=== PATIENT | male | born 1985 ===

== ENCOUNTER 2025-02-19 12:35 | Emergency (ER) | payer MEDICAID, SELFPAY ==
--- NOTE | ~2025-02-19 | US_ITS ---
CLINICAL HISTORY: lt testicular pain and swelling w hard nodule post Scrotal ultrasound with vascular interrogation Comparison: None available Findings: The testes are normal in echotexture without lesions. Normal arterial/venous color Doppler and flow pattern. Right testis size, lower limit of normal: 4.6 x 1.9 x 2.5 cm, volume of 11.9mL. Left testis size, mildly atrophic: 4.0 x 1.4 x 2.6 cm, volume of 7.5mL. The epididymides are normal in size and echotexture. Normal color Doppler. No hydrocele. No varicocele. Within the scrotal wall inferior to the left testis there is hypoechoic/heterogeneous avascular collection measuring 1.9 x 1.1 x 1.1 cm. There is associated skin thickening with increased color Doppler. Impression: Left scrotal wall phlegmon versus abscess measuring 1.9 cm. This document has been electronically signed by: Lindsey Contreras MD on 02/19/2025 14:53:05
[2025-02-19 12:49] VITALS: BP 147/92; PULSE 96; RESP 18; TEMP 36.6; O2SAT 100; BMI 21.1
[2025-02-19] MEDS: HYDROcodone Bit/Acetam 5/325 TABLET 1 TAB PO (13:02)
[2025-02-19] MEDS: Lidocaine HCl 1 % MPF 5 ML VIAL SUBCUT (13:03)
--- NOTE | 2025-02-19 13:14 | ED.MALEGU ---
HPI - Male Genitourinary General Chief complaint: General Medical Stated complaint: Hernia on testicle Time Seen by Provider: 02/19/25 12:42 Source: patient and old records reviewed Mode of arrival: ambulatory Limitations: no limitations History of Present Illness ED Provider: CONCEPCIÓN ESPOSITO Narrative: 39 yo male with no sig PMH here with pain to L testicle and noting a bump. No new sexual partners, no abdominal pain no dysuria, no penile discharge, no fevers. He has never had this before. No hx of DM MD Complaint: testicle pain Onset (ago): day(s) (1) Duration: constant Location: left testicle Severity: moderate Quality: aching Relieving factors: none Exacerbating factors: palpation Associated symptoms: Reports denies other symptoms Related Data Previous Rx's ?Medication ?Instructions ?Recorded cephalexin 500 mg capsule 500 mg PO QID 7 days #28 caps 02/19/25 doxycycline hyclate 100 mg capsule 100 mg PO BID 7 days #14 caps 02/19/25 Allergies Allergy/AdvReac Type Severity Reaction Status Date / Time ampicillin Allergy Unknown Verified 02/19/25 12:56 Review of Systems Review of Systems: Constitutional : No Fever, No Chills ENT/Mouth : No sore throat, No Rhinorrhea Eyes: No Eye Pain, No Swelling, No Redness Cardiovascular : No Chest Pain, No SOB Respiratory : No Cough, No Sputum Gastrointestinal : No Nausea, No Vomiting, No Diarrhea, No abdominal Pain Genitourinary : No Dysuria, No Hematuria Musculoskeletal : No joint pain, No Myalgias, No Joint Swelling Skin : No Skin Lesions, positive skin rash Neuro : No Weakness, No Numbness, No Headache All other systems reviewed and are negative [facility] Past Medical History Attestation statement: The following information was validated with the patient. Source: old records reviewed Medical History (Updated 02/19/25 @ 15:06 by Nancy Steward DO) No pertinent past medical history Social History Social History (Updated 02/19/25 @ 13:20 by Nancy Steward DO) Patient Tobacco Use Status: Tobacco use Unknown Advance Directives: No Advance Directives Information Provided: No Physical Exam Vital Signs: Vital Signs: Last Vital Signs Temp 98 F 02/19/25 12:49 Pulse 96 02/19/25 12:49 Resp 18 02/19/25 12:49 BP 147/92 H 02/19/25 12:49 Pulse Ox 100 02/19/25 12:49 O2 Del Method Room Air 02/19/25 12:49 BMI result Body Mass Index 21.1 Appearance: Alert. Oriented X3. No acute distress. Eyes: Pupils equal, round and reactive to light. ENT: Pharynx normal. Neck: Normal inspection. Neck supple. CVS: Normal heart rate and rhythm. Pulses normal. Respiratory: No respiratory distress. Breath sounds normal. Abdomen: Soft and nontender. L testicle no hernia felt under the inf aspect of the scrotum is a firm tender area felt but no redness or crepitus Skin: Skin warm and dry. Normal skin color. . Extremities: No lower extremity edema. Neuro: Oriented X 3. No motor deficit. No sensory deficit. CN2-12 intact Medications Administered Discontinued Medications Generic Name Dose Route Start Last Admin Trade Name Freq PRN Reason Stop Dose Admin Hydrocodone Bitart/Acetaminophen 1 tab 02/19/25 12:54 02/19/25 13:02 Hydrocodone Bit/Acetam 5/325 Tablet PO 02/19/25 12:55 1 tab ONCE ONE Administration Lidocaine HCl 5 ml 02/19/25 12:54 02/19/25 13:03 Lidocaine Hcl 1 % Mpf 5 Ml Vial SUBCUT 02/19/25 12:55 5 ml ONCE ONE Administration Medical Decision Making Medical Decision Making [facility] Narrative: healthy 39 yo male with pain to L scrotum and concern for mass vs abscess on exam he has no systemic symptoms will obtain POC blood sugar, US to evaluate for mass/abscess. If abscess will I+D at the bedside. Differential Diagnosis Differential Diagnoses: The differential diagnosis associated with the presentation includes mass, abscess Admission/Observation Consideration of admission/observation: Escalation of care including admission/observation considered given the area and not fluctuance I will start on sitz baths and oral abx Lab Data [facility] Lab Attestation statement: I reviewed the patient's lab results. Independent Interpretation I performed an independent interpretation of an: Ultrasound (phlegmom vs abscess) Radiology Impression Discussion of test interpretation with radiology: I have reviewed the radiologist's reading. External Record Review External record reviewed: Outpatient record Prescription Management I considered prescription management with: Pain Medication and Antibiotic Discharge Plan Discharge Clinical Impression: Cellulitis of scrotum Patient Disposition: Home, Self-Care Instructions: Cellulitis (ED), Abscess (ED), Sitz Bath (DC) Additional Instructions: start of abscess on ultrasound wear supportive underwear return for worsening pain, fevers, unable to eat or drink, swelling increases please do sitz baths for 72 hours On doxycycline, do not take pills immediately before going to bed and swallow pills with plenty of water. Avoid direct sunlight, iron, antacids, and Pepto Bismol. Call your provider if you develop new ringing in your ears, new problems hearing, dizziness, difficulty swallowing, rash, abdominal discomfort, nausea, or diarrhea.? On a cephalosporin?antibiotic, softer bowel movements are to be expected. Call your provider if you move your bowels more than 4 times a day, your bowel movements are almost all liquid, or you get a rash.?? Prescriptions: New doxycycline hyclate 100 mg capsule 100 mg PO BID 7 Days Qty: 14 0RF cephalexin 500 mg capsule 500 mg PO QID 7 Days Qty: 28 0RF Stand Alone Forms: Work/School Release Print Language: Azeri
[2025-02-19 15:24] VITALS: BP 113/60; PULSE 81; RESP 18; TEMP 36.4; O2SAT 99
[2025-02-19 15:28] VITALS: BP 113/60; PULSE 81; RESP 18; TEMP 36.4; O2SAT 99
== END 2025-02-19 15:29 | disposition home or self-care (01) ==
PROVIDERS: Emergency Provider Emergency Medicine
DX: N49.2 Inflammatory disorders of scrotum (principal); N50.812 Left testicular pain; R10.2 Pelvic and perineal pain
CPT/HCPCS: 76870; 93975; 99284; J2003

== ENCOUNTER → 2025-02-19 12:54 | Outpatient (BNV) | payer MEDICAID, SELFPAY | PROVIDERS: Emergency Provider Emergency Medicine; Visit Provider Radiology Diagnostic Radiology | DX: N50.812 Left testicular pain (principal) | CPT/HCPCS: 93975 ==